=== PATIENT | male | born 1990 | race Caucasian/White ===

== ENCOUNTER 2017-07-02 11:02 | Emergency (ER) | payer SELFPAY ==
[2017-07-02 12:58] VITALS: BP 138/76
--- NOTE | 2017-07-02 13:09 | UC ---
Skin Complaint HPI - HPI Summary HPI Summary: 26 yo gentleman c/o R upper ant wall redness and swelling. Started x 2 days. No fever / chills (but has felt warm). Was fishing, and thinks felt something bite him. By the next morning, he noted redness, swelling. Not getting better. Denies hx or fam hx diab katherine. - History of Current Complaint Chief Complaint: UCSkin Time Seen by Provider: 07/02/17 13:08 Stated Complaint: INSECT BITE INFECTED ON STOMACH Hx Obtained From: Patient Pain Intensity: 5 - Allergy/Home Medications Allergies/Adverse Reactions: Allergies Allergy/AdvReac Type Severity Reaction Status Date / Time No Known Allergies Allergy Verified 07/02/17 12:59 Review of Systems Constitutional: Negative - see hpi Skin: Other - see hpi Eyes: Negative ENT: Negative Respiratory: Negative Cardiovascular: Negative Gastrointestinal: Other - see hpi. no abd pain, no n/v Genitourinary: Negative Motor: Negative Neurovascular: Negative Musculoskeletal: Negative Neurological: Negative Psychological: Negative Is Patient Immunocompromised?: No All Other Systems Reviewed And Are Negative: Yes PMH/Surg Hx/FS Hx/Imm Hx Previously Healthy: Yes - Surgical History Surgical History: Yes Surgery Procedure, Year, and Place: APPY - Family History Known Family History: Positive: Cardiac Disease, Hypertension, Diabetes - Social History Occupation: Employed Full-time Alcohol Use: Rare Substance Use Type: None Smoking Status (MU): Current Every Day Smoker Type: Cigarettes Amount Used/How Often: 1 PPD Length of Time of Smoking/Using Tobacco: 2 YRS Physical Exam Triage Information Reviewed: Yes Appearance: Well-Appearing, Well-Nourished Vital Signs: Initial Vital Signs Temp 99.5 F 07/02/17 12:55 Pulse 69 07/02/17 12:55 Resp 18 07/02/17 12:55 BP 138/76 07/02/17 12:55 Pulse Ox 100 07/02/17 12:55 Vital Signs Reviewed: Yes Eye Exam: Normal - grossly normal ENT Exam: Normal - grossly normal, except poor dentition (detailed exam not performed). Neck exam: Normal Neck: Positive: Supple Respiratory Exam: Normal Respiratory: Positive: Chest non-tender, Lungs clear, Normal breath sounds, No respiratory distress Cardiovascular Exam: Normal Cardiovascular: Positive: RRR, No Murmur, Pulses Normal, Brisk Capillary Refill Abdominal Exam: Normal - see "skin" re abd wall abscess Abdomen Description: Positive: Nontender Bowel Sounds: Positive: Present Musculoskeletal Exam: Normal Neurological Exam: Normal - grossly nonfocal Psychological Exam: Normal - conversing easily and appropriately Skin Exam: Other - nondiaphoretic. R abd wall ovoid area of redness approx 5.5cm x approx 3.5cm. central indurated. Central dark necrotic eschar approx 0.5cm. No crepitus, no gross drainage. + warm to touch. Course/Dx - Course Course Of Treatment: Incision and drainage. Informed consent and appropriate time out performed. Local anesthesia with 2.5cc 2% lidocaine no epinephrine. Incision 1.5cm via # 11 blade scalpal. Yellow purulent material, irrigated with 10ccNS. Cx sent. Gentle pack with surgical gauze. gauze / abd pad / tape. Reviewed wound care instructions with pt and vp mobile products. Abx given here. 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 May take acetaminophen, or ibuprofen as needed for pain. Not on empty stomach. Questions as posed answered to the best of my ability. F/u tomorrow recommended. - Diagnoses Provider Diagnoses: Ant abd wall wound. Cellulitis Discharge - Sign-Out/Discharge Documenting (check all that apply): Discharge/Admit/Transfer - Discharge Plan Condition: Stable Disposition: HOME Prescriptions: DOXYcycline CAP(*) [DOXYcycline 100MG CAP(*)] 100 mg PO BID #19 cap Patient Education Materials: Cellulitis (ED), Abscess (ED) Forms: *Work Release Referrals: [facility]FERR[facility] [Outside] No Primary Care Phys,NOPCP [Primary Care Provider] - Additional Instructions: Follow up here or with primary care physician tomorrow for recheck. Seek medical attention (emergency department) for worse new problems. Avoid prolonged direct sun exposure while taking antibiotics. Drink plenty of water. - Billing Disposition and Condition Condition: STABLE Disposition: HOME
[2017-07-02] MEDS ORDERED: Lidocaine 2% PF * 5 ML VIAL INJ ONE (13:24)
[2017-07-02] MEDS ORDERED: DOXYcycline CAP(*) 100 MG PO ONE (13:26)
[2017-07-02] MEDS ORDERED: Sulfamethox/Trimethoprim DS 800/160* TAB PO ONE ×2 (13:26→14:06)
--- NOTE | 2017-07-03 16:56 | UC ---
- Progress Note Progress Note: Pt unable to afford Doxy will Rx Bactrim DS BID x 10 days to [facility] $4 list plan discussed with pt by RN - agreement 07/03/2017 4125 Discharge - Sign-Out/Discharge Documenting (check all that apply): Discharge/Admit/Transfer - Discharge Plan Condition: Stable Disposition: HOME Prescriptions: DOXYcycline CAP(*) [DOXYcycline 100MG CAP(*)] 100 mg PO BID #19 cap Sulfamethox/Trimethoprim DS* [Bactrim DS 800/160 TAB*] 1 tab PO BID #20 tab Patient Education Materials: Cellulitis (ED), Abscess (ED) Forms: *Work Release Referrals: [facility] [place] [facility]ERR[facility] [Outside] No Primary Care Phys,NOPCP [Primary Care Provider] - Additional Instructions: Follow up here or with primary care physician tomorrow for recheck. Seek medical attention (emergency department) for worse new problems. Avoid prolonged direct sun exposure while taking antibiotics. Drink plenty of water. - Billing Disposition and Condition Condition: STABLE Disposition: HOME
== END 2017-07-02 14:18 | disposition home or self-care (01) ==
LOC: UCCORT 11:02
DX: S31.150A Open bite of abdominal wall, right upper quadrant without penetration into peritoneal cavity, initial encounter (principal); L03.311 Cellulitis of abdominal wall; W57.XXXA Bitten or stung by nonvenomous insect and other nonvenomous arthropods, initial encounter; Y93.89 Activity, other specified; Y92.838 Other recreation area as the place of occurrence of the external cause; F17.210 Nicotine dependence, cigarettes, uncomplicated
CPT/HCPCS: 10060; 87070; 87077; 87186; 87205; 87640; 87641; 99212; A9270-GY; G0463

== ENCOUNTER 2017-07-03 20:40 | Emergency (ER) | payer SELFPAY ==
[2017-07-03 20:53] VITALS: BP 136/90
--- NOTE | 2017-07-03 21:05 | UC ---
Skin Complaint HPI - HPI Summary HPI Summary: Pt presents for packing removal of abscess I+D right anterior upper abdomen. Pt states had an infected "bug bite" Pt wound MRSA +. Pt called earlier today - was unable to get Doxy second to [facility]. I changed Rx to bactrim, [facility]. Pt has not picked up script yet. No fever, chills. no drainage. mild pain Pt's medications reviewed this visit - History of Current Complaint Chief Complaint: UCSkin Time Seen by Provider: 07/03/17 20:58 Stated Complaint: FOLLOW UP Hx Obtained From: Patient Onset/Duration: Lasting Days Skin Exposure Onset/Duration: Days Ago Timing: Constant Onset Severity: Mild Current Severity: Mild Pain Intensity: 4 Pain Scale Used: 0-10 Numeric Location: Discrete Aggravating Factor(s): Touch Alleviating Factor(s): Nothing Associated Signs & Symptoms: Positive: Negative - Allergy/Home Medications Allergies/Adverse Reactions: Allergies Allergy/AdvReac Type Severity Reaction Status Date / Time No Known Allergies Allergy Verified 07/03/17 20:53 Home Medications: Home Medications Sulfamethox/Trimethoprim DS* [Bactrim DS 800/160 TAB*] 1 tab PO BID 07/03/17 [ History Confirmed 07/03/17] Review of Systems Constitutional: Negative Skin: Other - right upper abdomen wound All Other Systems Reviewed And Are Negative: Yes PMH/Surg Hx/FS Hx/Imm Hx Previously Healthy: Yes - Surgical History Surgical History: Yes Surgery Procedure, Year, and Place: APPY - Family History Known Family History: Positive: Cardiac Disease, Hypertension, Diabetes - Social History Occupation: Unemployed Lives: With Family Alcohol Use: Rare Substance Use Type: None Smoking Status (MU): Current Every Day Smoker Type: Cigarettes Amount Used/How Often: 1 PPD Length of Time of Smoking/Using Tobacco: 2 YRS Physical Exam Triage Information Reviewed: Yes Appearance: Well-Appearing, No Pain Distress, Well-Nourished Vital Signs: Initial Vital Signs Temp 98.2 F 07/03/17 20:48 Pulse 115 07/03/17 20:48 Resp 16 07/03/17 20:48 BP 136/90 07/03/17 20:48 Pulse Ox 96 07/03/17 20:48 Vital Signs Reviewed: Yes Eyes: Positive: Conjunctiva Clear ENT: Positive: Hearing grossly normal Neck: Positive: Supple Respiratory: Positive: No respiratory distress, No accessory muscle use Cardiovascular: Positive: RRR, No Murmur Abdominal Exam: Normal Abdomen Description: Positive: Nontender, No Organomegaly, Soft Bowel Sounds: Positive: Present Musculoskeletal Exam: Normal Musculoskeletal: Positive: Strength Intact Neurological Exam: Normal Neurological: Positive: Alert Psychological Exam: Normal Psychological: Positive: Normal Response To Family Skin: Positive: Other - Right upper abdomen, pt with 1.5cm opening with 2inches packing. mild surrounding erythema and mild induration. No fluctuance. no drainage no odor. No crepitus, no red streak Course/Dx - Course Course Of Treatment: packing removed from abscess I+D. Wound well appearing. dressing applied. reviewed wound care with pt. bactrim here and disp 1 for am - pt to get Rx in afternoon at [facility]. sensitivity and culture pending. demarcated erythma. return precautions discussed - Diagnoses Provider Diagnoses: abscess follow-up. mild cellulitis Discharge - Sign-Out/Discharge Documenting (check all that apply): Discharge/Admit/Transfer - Discharge Plan Condition: Stable Disposition: HOME Patient Education Materials: MRSA (Methicillin-Resistant Staphylococcus Aureus ) (ED), Abscess Follow-up (ED) Referrals: No Primary Care Phys,NOPCP [Primary Care Provider] - Additional Instructions: - Keep bandage on for 24 hours. After this, cleanse wound with warm, soapy water 2 times a day. Pat dry. Cover with antibiotic ointment (neosporin or polysporin) and bandage - you MUST picker / packer your antibiotic TOMORROW and take 2 times a day for a total of 10 days - IT should be 4 dollar at [facility] - If you develop increased pain,f ever, drainage, increased reddness after 2 days or ANY Other concerns you should go to the emergency department - Billing Disposition and Condition Condition: STABLE Disposition: HOME
[2017-07-03] MEDS ORDERED: Sulfamethox/Trimethoprim DS 800/160* TAB PO ONE ×2 (21:13)
== END 2017-07-03 21:24 | disposition home or self-care (01) ==
LOC: UCCORT 20:40
DX: Z48.00 Encounter for change or removal of nonsurgical wound dressing (principal); L03.311 Cellulitis of abdominal wall; F17.210 Nicotine dependence, cigarettes, uncomplicated
CPT/HCPCS: 99212; A9270-GY; G0463

== ENCOUNTER 2017-08-27 17:15 | Emergency (ER) | payer OTHER ==
[2017-08-27 17:55] VITALS: BP 137/76
[2017-08-27] MEDS ORDERED: Clindamycin CAP* 150 MG PO ONE (18:24)
--- NOTE | 2017-08-27 18:30 | UC ---
Skin Complaint HPI - HPI Summary HPI Summary: 26 yo male presents with left jaw swelling. He recalls having a left lower molar bothering him last week. He has not had a fever. He also has been breaking out with numerous papules and pustules which she has been attempting to pop. He also has a draining abscess on his left anterior thigh. Approximately a month ago he had an abscess on his abdomen and a culture was obtained. This culture grew out MRSA. He has had no myalgias arthralgias or fatigue. - History of Current Complaint Chief Complaint: UCSkin Time Seen by Provider: 08/27/17 18:02 Stated Complaint: FACIAL SWELLING Hx Obtained From: Patient Onset/Duration: Gradual Onset, Lasting Days Timing: Constant Onset Severity: Mild Current Severity: Mild Pain Intensity: 4 Pain Scale Used: 0-10 Numeric Location: Discrete, Other - left jaw Character: Swelling, Redness - Allergy/Home Medications Allergies/Adverse Reactions: Allergies Allergy/AdvReac Type Severity Reaction Status Date / Time No Known Allergies Allergy Verified 08/27/17 17:48 Review of Systems Constitutional: Negative Skin: Rash Eyes: Negative ENT: Dental Pain Respiratory: Negative Cardiovascular: Negative Gastrointestinal: Negative Genitourinary: Negative Motor: Negative Neurovascular: Negative Musculoskeletal: Negative Neurological: Negative Psychological: Negative Is Patient Immunocompromised?: No All Other Systems Reviewed And Are Negative: Yes PMH/Surg Hx/FS Hx/Imm Hx Previously Healthy: Yes GI/ History: Gastroesophageal Reflux - Surgical History Surgical History: Yes Surgery Procedure, Year, and Place: APPY - Family History Known Family History: Positive: Cardiac Disease, Hypertension, Diabetes - Social History Alcohol Use: None Substance Use Type: None Smoking Status (MU): Heavy Every Day Tobacco Smoker Type: Cigarettes Amount Used/How Often: 1 PPD Length of Time of Smoking/Using Tobacco: 2 YRS Household Exposure Type: Cigarettes Physical Exam Triage Information Reviewed: Yes Appearance: Well-Appearing, No Pain Distress, Well-Nourished Vital Signs: Initial Vital Signs Temp 97.8 F 08/27/17 17:49 Pulse 87 08/27/17 17:49 Resp 17 08/27/17 17:49 BP 137/76 08/27/17 17:49 Pulse Ox 98 08/27/17 17:49 Vital Signs Reviewed: Yes Eyes: Positive: Conjunctiva Clear ENT: Positive: Hearing grossly normal, TMs normal, Dental tenderness, Uvula midline. Negative: Nasal congestion, Nasal drainage, Tonsillar swelling, Tonsillar exudate, Trismus, Muffled voice, Hoarse voice, Sinus tenderness Neck: Positive: Supple, Nontender, No Lymphadenopathy Respiratory: Positive: Lungs clear, Normal breath sounds, No respiratory distress, No accessory muscle use Cardiovascular: Positive: RRR, No Murmur Musculoskeletal: Positive: ROM Intact, No Edema Neurological: Positive: Alert Skin Exam: Other - see image/multiple pustules and papule/erthyema overlying left jaw swelling/left thigh abscess (draining) Course/Dx - Diagnoses Provider Diagnoses: dental abscess. MRSA infections Discharge - Sign-Out/Discharge Documenting (check all that apply): Discharge/Admit/Transfer - Discharge Plan Condition: Stable Disposition: HOME Prescriptions: Clindamycin Cap(NF) [Clindamycin Cap 300 mg Cap(NF)] 300 mg PO QID #28 cap Mupirocin 2% OINT* [Bactroban 2 % Oint*] 1 applic TOPICAL TID #1 tube Omeprazole CAP* [Prilosec CAP* 20 MG] 20 mg PO BEDTIME #14 cap. Patient Education Materials: MRSA (Methicillin-Resistant Staphylococcus Aureus ) (ED), Dental Abscess (ED) Referrals: No Primary Care Phys,NOPCP [Primary Care Provider] - Additional Instructions: you need to find a local MD I suggest you follow up with a dentist warm compresses use bacrtroban as discussed if symptoms worsen go to the ER if not markedly improved in 48 hours go to the ER - Billing Disposition and Condition Condition: STABLE Disposition: Home Images Head: 1 - swollen/tender Dental: 1 - swollen/no descrete abscess noted
== END 2017-08-27 18:38 | disposition home or self-care (01) ==
LOC: UCCORT 17:15
DX: K04.7 Periapical abscess without sinus (principal); A49.02 Methicillin resistant Staphylococcus aureus infection, unspecified site; Z86.14 Personal history of Methicillin resistant Staphylococcus aureus infection; F17.210 Nicotine dependence, cigarettes, uncomplicated
CPT/HCPCS: 99212; A9270-GY; G0463